=== PATIENT | female | born 2000 | race Caucasian/White ===

== ENCOUNTER 2023-08-24 22:18 | Emergency (ER) | payer SELFPAY ==
[2023-08-24 22:19] VITALS: BMI 25.0
[2023-08-24 22:26] VITALS: BP 135/83
[2023-08-24 22:38] LABS: % Basophils 0.7 % (0-2); % Eosinophils 1.5 % (0-6); % Immature Granulocytes 0.4 % (0-0.5); % Lymphocytes 15.5 % (20.5-51.1); % Monocytes 9.9 % (1.7-9.3); Absolute Basophils 0.1 10^3/uL (0-0.2); Absolute Eosinophils 0.2 10^3/uL (0-0.7); Absolute Immature Granulocytes 0.1 10^3/uL (0-0.05); Absolute Lymphocytes 2.1 10^3/uL (1.2-3.4); Absolute Monocytes 1.3 10^3/uL (0.1-0.6); Absolute Neutrophils 9.7 10^3/uL (1.4-6.5); Hematocrit 35.1 % (39.0-52.0); Hemoglobin 12.7 g/dL (13.0-18.0); Mean Corp Hgb Conc. 36.2 g/dL (33.0-37.0); Mean Corpuscular Hgb 32.2 pg (27.0-31.0); Mean Corpuscular Volume 89.1 fL (80.0-94.0); Nucleated Red Blood Cells % 0 % (-); Red Blood Cell Count 3.94 10^6/uL (4.70-6.10); Red Cell Dist. Width 12.1 % (11.5-14.5); White Blood Cell Count 13.5 10^3/uL (4.8-10.8)
--- NOTE | 2023-08-24 22:45 | ED.GENMED ---
History of Present Illness
General
Chief Complaint: Seizure
Source: patient
Exam Limitations: none
Time Seen by Provider: 08/24/23 22:20
History of Present Illness
History of Present Illness:
This is a 22 year old female that comes in with c/o possible syncope Vs seizure. States that she was at work and doesn't really remember much. Friend with patient states that she came down to see her and she had this blank stair. States that she
then left and went back up stairs. States that she next heard a medical emergency called and when she got there the patient was on the floor with stuff coming out of her mouth. States that she was told that she was shaking. Patient states that she
feels a little nauseated and has a headache. States that the pain took about a min before she came around. Denies any fever, chills, chest pain, SOB, abd pain, vomiting, diarrhea, dizziness, urinary burning.
Past History
Past History
ED Past Medical History: None; Negative Asthma, HTN, Hypercholesterolemia or NIDDM
ED Past Surgical History: Other (Surgery on left eye)
Social History
Tobacco: Vaping
Alcohol: Occasional
Personal: Single
Living: with family
Employment: Employed
Review of Systems
Review of Systems
All Other Systems: ROS reviewed and negative except as documented in HPI and ROS
Constitutional: Reports no symptoms; Denies fever or chills
EENT: Reports no symptoms
Respiratory: Reports no symptoms; Denies cough or trouble breathing
Cardiac: Reports no symptoms; Denies chest pain
ABD/GI: Reports nausea; Denies abdominal pain, vomiting or diarrhea
: Reports no symptoms; Denies dysuria, frequency or urgency
Musculoskeletal: Reports no symptoms
Skin: Reports no symptoms
Neurological: Reports headache; Denies dizzy
Psychiatric: Reports no symptoms
Phy Exam
General Physical Exam
General Presentation: no apparent distress
General age: appears stated age
General Skin: warm and dry
General Habitus: normal
General Mental: alert
ENT Exam
ENT Exam: TM's normal, pharynx normal and neck supple
Eye Exam
Eye Exam: EOMI
Cardiovascular Exam
Cardiovascular Exam: regular rate/rhythm, no edema, no murmur and normal peripheral pulses
Pulmonary Exam
Pulmonary Exam: lungs clear, no respiratory distress, no rales, chest non tender, no crackles, no rhonchi, no wheezing and no cough
Gastrointestinal Exam
Gastrointestinal Exam: normal bowel sounds, non tender, soft, no organomegaly, no pulsatile mass and non distended
Musculoskeletal Exam
Musculoskeletal Exam: full ROM and no edema
Skin Exam
Skin Exam: normal color, warm/dry, no rash and no petechia
Psychiatric Exam
Psychiatric Exam: normal mood/affect
Course
Orders/Labs/Results
Orders:
Orders
08/24/23 22:25
EKG [Electrocardiogram (*1)] Urgent
Reason for Study: Tachycardia
EKG- Treatment ONCE
Test Result ONCE
08/24/23 22:28
Complete Blood Count/With Diff Urgent
Comprehensive Metabolic Panel Urgent
HCG, Serum Qualitative Screen Urgent
08/24/23 22:44
0.9% Sodium Chloride 1000 ml [Nss] 1,000 ml IV BOLUS
08/24/23 22:47
CT Head W/o Iv Contrast Urgent
Reason For Exam: Fall
08/24/23 22:59
Urinalysis Reflex To Culture Urgent
Date Specimen was Collected: 08/24/23
Time Specimen was Collected: 22:55
Urine Drug Abuse Screen Urgent
Date Specimen was Collected: 08/24/23
Time Specimen was Collected: 22:55
Abnormal Lab Results
08/24/23
22:28
WBC 13.5 H 10^3/uL
(4.8-10.8)
RBC 3.94 L 10^6/uL
(4.70-6.10)
Hgb 12.7 L g/dL
(13.0-18.0)
Hct 35.1 L %
(39.0-52.0)
MCH 32.2 H pg
(27.0-31.0)
Abs Immat Gran (auto) 0.1 H 10^3/uL
(0-0.05)
Absolute Neuts (auto) 9.7 H 10^3/uL
(1.4-6.5)
Absolute Monos (auto) 1.3 H 10^3/uL
(0.1-0.6)
Lymphocytes % 15.5 L %
(20.5-51.1)
Monocytes % 9.9 H %
(1.7-9.3)
08/24/23 22:28
08/24/23 22:28
Leukocytosis, H/H slightly low. HCG negative, Urine negative for infection or blood.
Vital Signs
Initial and Last Documented VS:
Initial Vital Signs
Temp
98.4 F
08/24/23 22:20
Last Documented Vital Signs
Temp Pulse Resp BP Pulse Ox
98.4 F 90 29 135/83 98
08/24/23 22:20 08/24/23 23:45 08/24/23 22:33 08/24/23 22:26 08/25/23 00:30
MDM/Problems Addressed
Differential Diagnosis Includes:
Syncope, Seizure,
MDM/Problems Addressed:
This is a 22 year old female that was brought in by ambulance with c/o syncope or seizure. Friend states that the patient went to see her as they were both working. States that she came down stairs and she had this blank stare. States that she left
and went back up stairs and the next thing she heard was them calling a medical emergency. States that when she got there the patient was on the floor and there was stuff coming out of her mouth. Friend states that she was told that there was some
shaking but patient came around in about 1 min.
will check labs, give IV fluids and get UA/Urine drug.
Back into see patient. Explained that her blood work shows her WBC are slightly elevated. Her CT of the head is normal. This was most likely Syncope and not seizure as there was no post Postictal state. Patient to follow up with the PCP and a
neurologist. Patient to return with any concerns.
Chronic conditions affecting care:
NA
Acute Exacerbation and/or Progression of Chronic Illness:
NA
*Radiology
Radiology exam reviewed: radiology read reviewed (CT head-Night hawk=No acute intracranial a hemorrhage. No acute intracranial abnormality. )
*Pulse Oximetry
Patient hypoxic: no
*EKG
Interpreted by ED Provider?: Yes
Heart Rate: 105
Rate: tachycardiac
Rhythm: sinus
[place]: normal axis
Interval: normal interval
QRS Pattern: normal QRS
Ischemia: T-wave inversion (III, aVR, V1, V3, V4, )
*[employer] Interpretation
Rate: tachycardiac
Heart Rate: 107
Rhythm: sinus tachycardia
*Critical Care Note
Total Time (30-74mins, 75-104mins- exclusive of procedures): Not Applicable
ED Attending Note
-
Portions of this chart may have been created with voice recognition software.� Occasional wrong word or��sound alike� substitutions may have occurred due to the inherent limitations of voice recognition software.
Discharge Plan
Departure
Patient Disposition: Home (Routine Discharge)
Date of Disposition: 08/25/23
Time of Disposition: 00:45
Patient with high blood pressure during this ER visit?: Yes
Condition: Good
Covid-19: Not Applicable
Discharge Problem:
Syncope
Instructions: Syncope (Fainting) (DC), BLOOD PRESSURE
Referrals:
Jose Alas MD [Active] - Call in 1-3 days for appt
NONE,* [Family Provider] -
Activity Restrictions/Additional Instructions:
As discussed, your blood work shows that your WBC are slightly elevated. Urine is negative for infection. CT of the head is normal. Please follow up with the family doctor for further evaluation and a Neurologist for further testing. Please
increase your water intake to 8-8oz glasses daily, IF YOU HAVE ANY OTHER CONCERNS PLEASE RETURN TO THE EMERGENCY ROOM.
Interventions
Interventions:
*Risk Screen - Suicide Last Done: 08/24/23 22:20
*General Assessment Last Done: 08/24/23 22:20
*Neglect/Abuse Screening Last Done: 08/24/23 22:20
ED- Fall Risk Assessment Last Done: 08/24/23 22:25
*ED COVID-19 Vaccine History Last Done: 08/24/23 22:20
ED- Cardiac Assessment Last Done: 08/24/23 22:26
ED- Neurological Assessment Last Done: 08/24/23 22:26
ED- Pulmonary Assessment Last Done: 08/24/23 22:26
Discharge Date and Time
Print Language: INDONESIAN
[2023-08-24 22:54] LABS: HCG, Serum Qualitative Screen Negative
[2023-08-24 22:56] LABS: ALT (SGPT) 20 U/L (0-50); AST (SGOT) 30 U/L (17-59); Albumin 4.6 g/dl (3.5-5.0); Alkaline Phosphatase 50 U/L (38-126); Blood Urea Nitrogen 15 mg/dl (9-20); Calcium 9.5 mg/dl (8.4-10.2); Carbon Dioxide 23 mmol/L (22-30); Chloride 100 mmol/L (98-107); Estimated Creatinine Clearance 115 ml/min; Glucose 92 mg/dl (70-99); Potassium 4.4 mmol/L (3.5-5.1); Sodium 135 mmol/L (135-145); Total Bilirubin 0.7 mg/dl (0.2-1.3); Total Protein 7.7 g/dl (6.3-8.2); eGFR > 60.00
[2023-08-24] MEDS: NSS 1000 IV (22:57)
[2023-08-24 23:10] LABS: Urine Albumin Negative (Neg - Trace); Urine Bilirubin Negative (Negative); Urine Character Clear (Clear); Urine Color Yellow; Urine Glucose Negative (Negative); Urine Ketone Negative (Negative); Urine Leukocyte Negative (Negative); Urine Nitrite Negative (Negative); Urine Occult Blood Negative (Negative); Urine Specific Gravity 1.015 (<1.030); Urine Urobilinogen Negative (Neg - 1+)
[2023-08-24 23:18] LABS: Amphetamines Negative (Negative); Barbiturates Negative (Negative); Benzodiazepines Negative (Negative); Buprenorphine Negative (Negative); Cocaine Negative (Negative); Marijuana Negative (Negative); Methadone Negative (Negative); Methamphetamines Negative (Negative); Opiates Negative (Negative); Phencyclidine Negative (Negative); Tricyclic Antidepressants Negative (Negative)
[2023-08-25 00:50] VITALS: BP 105/73
[2023-08-25 00:55] VITALS: BP 105/73
== END 2023-08-25 00:56 | disposition home or self-care (01) ==
LOC: EMR 22:18
PROVIDERS: Clinical Nurse Specialist Family Health; EMERGENCY PHYSICIAN Emergency Medicine
DX: R55 Syncope and collapse (principal); W19.XXXA Unspecified fall, initial encounter
CPT/HCPCS: 99284; 96360; 70450; 80053; 80306; 81003; 84703; 85025; 93005